=== PATIENT | female | born 1995 | race Caucasian/White ===

== ENCOUNTER 2018-05-04 11:20 | Outpatient (CLI) | payer OTHER, SELFPAY ==
[2018-05-04 11:55] VITALS: BMI 27.2
--- NOTE | 2018-05-05 11:07 | OB.TRI.NOTE ---
History of Present Illness Date of Service: 05/04/18 Was patient seen by the physician?: No Reason For Visit: DECREASED MOVEMENT Date of Service: 05/04/18 Final MERE: 09/11/18 Gestational age: 21 Weeks and 4 Days Allergies No Known Allergies Allergy (Verified 05/04/18 11:57) Impression/Plan + FHTS by doppler a/p 22 YOF high risk multigravida w/ decreased movement, h/o previous c/s reassured, + FHTS f/u in office as scheduled or as needed
== END 2018-05-04 12:30 | disposition home or self-care (01) ==
LOC: WPOUT 11:51 → WP 11:52
PROVIDERS: Visit Provider Obstetrics & Gynecology
DX: O36.8120 Decreased fetal movements, second trimester, not applicable or unspecified (principal); O09.42 Supervision of pregnancy with grand multiparity, second trimester; Z3A.21 21 weeks gestation of pregnancy
CPT/HCPCS: 59050; 99218; G0378

== ENCOUNTER 2018-09-04 14:13 | Inpatient (IN) | payer OTHER, SELFPAY ==
[2018-09-03 16:42] LABS: Absolute Lymphocyte Count 2.06 X10^3/ul (0.83-4.51); Absolute Neutrophil Count 8.9 X10^3/uL (2.0-7.7); Basophil# 0.01 X10^3/uL; Basophil% 0.1 % (0-1); Eosinophil# 0.05 X10^3/uL; Eosinophils% 0.4 % (0-5); Hematocrit 36.2 % (37-47); Hemoglobin 11.9 g/dl (12.0-15.0); Lymphocyte # 2.06 X10^3/ul (4.0); Mean Corp Hgb Conc 32.9 g/gl (32-36); Mean Corpuscular Hgb 27.9 pg (27.0-32.0); Monocyte# 0.93 X10^3/uL; Monocyte% 7.7 % (0-10); Neutrophil # 8.94 X10^3/uL (2.7-7.7); Neutrophil % 73.9 % (47-70); POSITIVE COUNT NO; POSITIVE DIFFERENTIAL NO; POSITIVE MORPHOLOGY NO; Platelet Count 190 K/mm3 (150-450); RBC Distribution Width CV 14.2 % (11.6-14.6); RBC Distribution Width SD 43.7 fl (35.1-43.9); Red Blood Count 4.26 M/mm3 (4.2-5.4); White Blood Count 12.1 K/mm3 (4.4-11.0)
[2018-09-04] VITALS (17 sets, daily range): BP systolic 95–117; BP diastolic 50–70; PULSE 66–85; RESP 16–18; TEMP 36.2–36.6; O2SAT 96–100; BMI 28.8
[2018-09-04] MEDS: Lactated Ringers 1,000 ML 999 ML IV (10:00)
[2018-09-04] MEDS: Lactated Ringers 1,000 ML 150 ML IV (11:00)
[2018-09-04] MEDS: Sodium Citrate/Citric Acid 30 ML UDC PO (12:00)
[2018-09-04] MEDS: Cefazolin 2 GM in 0.9% Normal Saline 100 ML IV (12:17)
[2018-09-04] MEDS: Oxytocin 30 units/NS 500 ml 30 UNITS/500 ML IV.SOLN 167 UNITS IV (12:44)
[2018-09-04] MEDS: Ketorolac 30 MG/ML Syringe IV ×2 (14:27→20:26)
[2018-09-04] MEDS: Ondansetron 4 MG/2 ML Vial IV ×2 (14:27→20:25)
--- NOTE | 2018-09-04 19:31 | NURSING ---
Pt stood at side of bed, kelechi pad changed. Pt tolerated well. Back to bed after pad changed.
[2018-09-04] MEDS: 0.9% Saline Lock 10 ML Syringe IV (20:26)
[2018-09-05] VITALS (9 sets, daily range): BP systolic 96–133; BP diastolic 48–74; PULSE 78–98; RESP 14–18; TEMP 36–36.9; O2SAT 97–100
[2018-09-05 05:09] LABS: Hematocrit 29.7 % (37-47); Hemoglobin 9.7 g/dl (12.0-15.0); Mean Corp Hgb Conc 32.7 g/gl (32-36); Mean Corpuscular Hgb 27.9 pg (27.0-32.0); Mean Corpuscular Volume 85.3 fL (81-99); Mean Platelet Vol. 9.6 fl (6.2-12.0); Platelet Count 210 K/mm3 (150-450); RBC Distribution Width CV 14.2 % (11.6-14.6); RBC Distribution Width SD 42.8 fl (35.1-43.9); Red Blood Count 3.48 M/mm3 (4.2-5.4); White Blood Count 11.7 K/mm3 (4.4-11.0)
[2018-09-05 05:20] LABS: Scan Indicated on CBC? Y/N NO
[2018-09-05] MEDS: Ketorolac 30 MG/ML Syringe IV ×4 (06:15→23:36)
--- NOTE | 2018-09-05 07:23 | PCM.PN.OB ---
Subjective: Doing well this morning. Tolerating regular diet without nausea or vomiting. Has not yet ambulated. Gonzalez still in place. Denies lightheadedness, dizziness, chest pain, shortness of breath, leg pain. Pain is well controlled. She feels well and has no complaints. - Physical Exam General: Alert, Oriented x3 HEENT: Atraumatic Lungs: - - No increased resp effort Abdomen: Soft, Non Tender, - - FF@U, dressing with minimal shadowing, no surrounding errythema or swelling Extremities: No edema, No Calf Tenderness Skin: No rashes Neurological: Neuro grossly intact Psych/Mental Status: Normal Affect, Appropriate Vital Signs Temp Pulse Resp BP Pulse Ox 98.5 F 85 16 108/74 99 09/05/18 05:10 09/05/18 06:42 09/05/18 06:42 09/05/18 05:10 09/05/18 06:42 Oxygen Delivery Method Room Air Weight: 163 lb Body Mass Index (BMI) 28.8 Intake and Output for Last 24 Hours 09/03/18 09/04/18 09/05/18 23:59 23:59 23:59 Intake Total 1869 / 1869 1339 / 1339 Output Total 1150 / 1150 1175 / 1175 Balance 719 / 719 164 / 164 Laboratory Tests Past 24 Hrs 09/05/18 04:56 WBC 11.7 H RBC 3.48 L Hgb 9.7 L Hct 29.7 L MCV 85.3 MCH 27.9 MCHC 32.7 RDW 14.2 RDW Differential 42.8 Plt Count 210 MPV 9.6 Medical Necessity - Tobacco Use Smoking Status: Never smoker Assessment/Plan Patient is postoperative day 2 from a repeat low transverse section. - Doing well - Pain controlled - AF, VSS - Start iron for post-op Hgb 9 - Remove gonzalez and encouraged ambulation today - Dispo: Routine PO care
--- NOTE | 2018-09-05 07:26 | PCM.OB.CSR ---
- Problem List (1) History of delivery Status: Acute Delivery Classification: Scheduled Gestational age: 39 wks Indications: Patient is a 22-year-old 001 at 39 weeks gestation who presents for a repeat low transverse section. She is a history of 1 prior section for failure to progress in labor. Risks, benefits, and alternatives were discussed. She considered a trial of labor after section but ultimately decided to have a repeat section. Indications for : Repeat Elective Description of Procedure: Findings: Normal uterus, bilateral tubes, bilateral ovaries. Minimal scarring noted. Bladder slightly adhered to the anterior surface of the uterus. Procedure: Patient taken to operating room where spinal anesthesia was found to be adequate. She was placed in dorsal supine position with a leftward tilt. She was prepped and draped in the usual sterile fashion. Skin incision was made with a scalpel along her prior incision. Incision was carried down to the underlying layer of fascia. The fascia was extended laterally using Caldwell scissors. Gretchen clamps were placed on the superior portion of the fascia, and the underlying rectus muscles were dissected off of the fascia with sharp dissection. Gretchen clamps were then placed on the inferior portion of the fascia, and the underlying rectus muscles dissected off of the fascia using sharp dissection. The rectus muscles were in the midline. The peritoneum was entered bluntly. Minimal adhesions of the bladder were noted to the anterior surface of the uterus. A bladder flap was created. A low transverse incision was made on the uterus. The was delivered in vertex position without difficulty. Cord was clamped and cut after 60 seconds and the infant was handed off to the nursery nurse. The uterus was exteriorized and normal bilateral fallopian tubes and ovaries were noted. The uterus was cleared of all clot and debris. The uterus was closed with Vicryl in a running locked fashion. Several additional [id number] sutures were placed on the uterine incision for hemostasis. Uterus was placed back into the abdomen. Hemostasis was again noted. Luis was placed over the uterine incision. The peritoneum was then closed in a running fashion with Vicryl. The fascia was then closed in a running fashion with Vicryl. The subcutaneous space was irrigated and any bleeding was cauterized with the Bovie. The subcutaneous space was closed with Vicryl. The skin was closed in a subcuticular fashion using Monocryl. Sponge, lap, instrument counts were correct x2. Patient was taken to the recovery room in stable condition. Amniotic Fluid Description: Clear Specimen(s) sent to pathology: None Drain: Worthy to straight drain Cord Vessel Description: 3 Vessels Esitmated Blood Loss (ml): 500 Infant Gender: Female Delayed cord clamping: Yes Pre-op Antibiotic Given: Ancef 2 grams IV x1 Complications: None - Admit VTE Documentation VTE Mechan Device Prophylaxis: SCD's
[2018-09-05] MEDS: Ferrous Sulfate 325 MG Tablet PO (12:23)
[2018-09-05] MEDS: 0.9% Saline Lock 10 ML Syringe IV ×3 (12:24→23:36)
--- NOTE | 2018-09-05 12:50 | PCM.PN.OB ---
Patient Problems: Active and Suspected Problems History of delivery (Acute) Subjective: Doing well per patient and nursing staff. Ambulating without difficulty. Worthy out and voiding. Passing flatus, no BM. Denies any headache, visual changes, chest pain, SOB, or increased pain. . Planning D/C home tomorrow. - Physical Exam General: Alert, No apparent distress HEENT: Atraumatic, Normocephalic Neck: Supple, Trachea Midline Lungs: Clear to auscultation, No rhonchi, No wheeze Cardiovascular: Regular rate, Regular Rhythm, No murmurs Abdomen: Tender - Dressing dry and intact, old blood. Extremities: No edema Psych/Mental Status: Normal Affect, Appropriate Vital Signs Temp Pulse Resp BP Pulse Ox 97.2 F L 90 16 96/54 L 100 09/05/18 12:15 09/05/18 12:15 09/05/18 12:15 09/05/18 12:15 09/05/18 12:15 Oxygen Delivery Method Room Air Weight: 163 lb Body Mass Index (BMI) 28.8 Intake and Output for Last 24 Hours 09/03/18 09/04/18 09/05/18 23:59 23:59 23:59 Intake Total 1869 / 1869 1472 / 1472 Output Total 1150 / 1150 1725 / 1725 Balance 719 / 719 -253 / -253 Laboratory Tests Past 24 Hrs 09/05/18 04:56 WBC 11.7 H RBC 3.48 L Hgb 9.7 L Hct 29.7 L MCV 85.3 MCH 27.9 MCHC 32.7 RDW 14.2 RDW Differential 42.8 Plt Count 210 MPV 9.6 Medical Necessity - Tobacco Use Smoking Status: Never smoker Assessment/Plan All Active Problems History of delivery (Acute) A:POD #1 Repeat Section P: 1) Routine orders 2) Planning D/C home tomorrow 3) Pain management.
[2018-09-06 01:30] VITALS: BP 112/53; PULSE 82; RESP 17; TEMP 36
[2018-09-06] MEDS: Ketorolac 30 MG/ML Syringe IV (05:38)
[2018-09-06] MEDS: 0.9% Saline Lock 10 ML Syringe IV (05:38)
--- NOTE | 2018-09-06 07:20 | PCM.PN.OB ---
Patient Problems: Active and Suspected Problems History of delivery (Acute) Subjective: Patient doing well. She has no complaints. Tolerating regular diet without nausea or vomiting. Ambulating and spontaneously voiding without difficulty. Breast-feeding. Baby doing well. She denies lightheadedness, dizziness, chest pain, shortness of breath, leg pain. She feels ready to go home. - Physical Exam General: Alert, Oriented x3 HEENT: Atraumatic Lungs: - - No increased resp effort Abdomen: Soft, Non Tender, - - FF@U-1, dressing in place, clean and no errythema Extremities: No edema, No Calf Tenderness Skin: No rashes Neurological: Neuro grossly intact Psych/Mental Status: Normal Affect, Appropriate Vital Signs Temp Pulse Resp BP Pulse Ox 96.8 F L 82 17 112/53 L 100 09/06/18 01:30 09/06/18 01:30 09/06/18 01:30 09/06/18 01:30 09/05/18 12:15 Oxygen Delivery Method Room Air Weight: 163 lb Body Mass Index (BMI) 28.8 Intake and Output for Last 24 Hours 09/04/18 09/05/18 09/06/18 23:59 23:59 23:59 Intake Total 1869 / 1869 1472 / 1472 Output Total 1150 / 1150 2125 / 2125 Balance 719 / 719 -653 / -653 Medical Necessity - Tobacco Use Smoking Status: Never smoker Assessment/Plan All Active Problems History of delivery (Acute) POD#2 s/p RLTCS - Doing well - D/c home today - Discharge instructions reviewed
--- NOTE | 2018-09-06 07:22 | DCINST_ITS ---
Discharge Diet: No Restrictions Discharge Activity: May not drive while taking narcotic pain medications., May Shower May shower in (days): 0 May resume sexual activity in: 4-6 weeks Weight Bearing Status: Weight bearing as tolerated Lifting Restrictions: No heavy lefint > 25 lbs Call your doctor if you observe: Fever of 101 or Higher, Inability to urinate, Inability to have a bowel movement, Using more than one pad per hour, Shortness of breath, Dizziness, Chest pain, Increased palpitations (irregular heartbeat), Calf discomfort, Uncontrolled pain Additional Instructions: If you experience any of the following, contact your healthcare provider. * Bleeding that soaks a pad every hour for 2 hours * Fever 100.4 or higher * Unrelieved incision or abdominal pain * Swelling, redness, discharge or bleeding from your incision or episiotomy site * Your incision begins to separate * Problems urinating (including inability to urinate or burning while urinating). * Visual changes * Severe headache * Flu-like symptoms * Pain or redness in one of both of your breasts * Pain, warmth, tenderness or swelling in your legs, especially the calf area * Frequent nausea and vomiting * Symptoms of depression or anxiety If you experience any of the following, call 911 or go to the nearest Emergency Room. * Chest pain * Problems breathing * Seizure activity * Partial or complete paralysis of a body part, slurred speech, weakness or drooping of the face, or a sudden inability to walk or hold your balance Allergies/Adverse Reactions: Allergies No Known Allergies Allergy (Verified 09/04/18 14:11) Medications to take at Discharge Vits [Prenatabs FA ] 1 tab PO DAILY 05/04/18 Follow-Up: Call to make an appointment with your doctor for an incision check in 1-2 weeks. You will also need a 6 week post- follow up appointment. Test results from this visit will be discussed in further detail at your follow- up appointment, if applicable. Please Follow Up With: 1 week and 4-6 weeks Primary Care Physician: Duke Londono [Primary Care Provider] -
[2018-09-06 08:00] VITALS: BP 107/48; PULSE 87; RESP 16; TEMP 36.6; O2SAT 99
== END 2018-09-06 08:55 | disposition home or self-care (01) | DRG 787 ==
PROVIDERS: Admitting Provider Obstetrics & Gynecology; Family Provider Family Medicine; PCP Family Medicine; Referring Provider Obstetrics & Gynecology; Visit Provider Obstetrics & Gynecology
PROC: (CPT 59514; principal; 2018-09-04 11:45)
DX: O34.211 Maternal care for low transverse scar from previous cesarean delivery (principal); D62 Acute posthemorrhagic anemia; O99.62 Diseases of the digestive system complicating childbirth; K21.9 Gastro-esophageal reflux disease without esophagitis; O90.81 Anemia of the puerperium; Z3A.39 39 weeks gestation of pregnancy; Z37.0 Single live birth
CPT/HCPCS: 85025; 85027; 86850; 86900; 99218; J7120; A4216; G0378; J2405

== ENCOUNTER 2019-12-29 12:35 | Outpatient (CLI) | payer OTHER, SELFPAY ==
[2018-09-04 14:31] VITALS: BMI 28.8
[2019-12-29 12:50] VITALS: BMI 28.7
[2019-12-29] MEDS: Ondansetron ODT 4 MG Tablet PO (13:09)
--- NOTE | 2020-01-01 09:58 | OB.TRI.HP_ITS ---
- Problem List (1) 27 weeks gestation of Status: Acute (2) Multiparous Status: Acute (3) Nausea & vomiting Status: Acute History of Present Illness Date of Service: 12/29/19 Was patient seen by the physician?: No Reason For Visit: NST Final MERE: 03/28/20 Gestational age: 27 Weeks and 4 Days History of Present Illness: Presented for routine office visit and had nausea and vomiting after her Glucola. A deceleration was heard on Doppler in the office. On NST in the of fice she had 2 additional decelerations therefore she was sent over to labor and delivery for extended monitoring. Allergies No Known Allergies Allergy (Verified 12/29/19 12:55) NST - FHR Rate Baby A Baseline: 145 Variability:: Moderate Accelerations:: 15 x 15 Decelerations:: None NST Reactive:: Yes FHR Category:: Category I Uterine Activity:: Quiet Impression/Plan NST reactive Patient feeling better after Zofran Discharged home with follow-up in the office
== END 2019-12-29 14:05 | disposition home or self-care (01) ==
LOC: WPOUT 12:43 → OBT 12:43
PROVIDERS: PCP Family Medicine; Referring Provider Obstetrics & Gynecology; Visit Provider Obstetrics & Gynecology
DX: O36.8320 Maternal care for abnormalities of the fetal heart rate or rhythm, second trimester, not applicable or unspecified (principal); Z3A.27 27 weeks gestation of pregnancy; R11.2 Nausea with vomiting, unspecified
CPT/HCPCS: 59025; 59050; 99218; G0378

== ENCOUNTER 2020-03-16 09:30 | Inpatient (IN) | payer OTHER, SELFPAY ==
--- NOTE | 2020-03-15 10:24 | PCM.HP.OB ---
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 She has a history of 2 prior sections. 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 Maternal- medicine recommended delivery at 38 to 39 weeks. The last ultrasound showed an LGA fetus at the 95th percentile due to the increased abdominal circumference measurement, which is due to the markedly enlarged right kidney. Her amniotic fluid was mildly increased at 22 cm. Allergies No Known Allergies Allergy (Verified 12/29/19 12:55) Home Medications: Home Medications Calcium Carbonate [Tums] 200 mg PO PRN PRN 12/29/19 Smoking Status: Never smoker Number of Fetus(es): 1 History Past Pregnancies: Past Pregnancies Delivery Date Name GA/ Weeks Outcome Route Wt Infant Sex Labor Length Anesthesia Delivery Location Provider FOB Labs: GBS neg Hgb a1c 4.3, pt did not tolerate glucola Hgb 11.3 Plt 225 TSH, free T4 WNL Sequential screen neg B positive Ab screen neg Syphilis NR RIHep B neg HIV NR GC/CT neg UDS neg See [facility] records Expected Infant Delivery Method: Repeat Section Review of Systems Constitutional: Denies: Chills, Fever HEENT: Denies: Head Aches Cardiovascular: Denies: Chest Pain Respiratory: Denies: Cough, Shortness of Breath Gastrointestinal: Denies: Abdominal Pain Genitourinary: Denies: Dysuria Neurological: Denies: Blurred vision, Double vision Psychiatric: Reports: Anxiety Physical Exam General: Alert, No apparent distress HEENT: Atraumatic Cardiovascular: Regular rate Lungs: Clear to auscultation Abdomen: Soft, Non Tender Extremities:: No edema Neurological: Neuro grossly intact Estimated gestational size: Appropriate for gestational size Presentation: Cephalic Assessment/Plan All Active Problems History of delivery (Acute) 27 weeks gestation of (Acute) Multiparous (Acute) Nausea & vomiting (Acute) 38 weeks gestation of (Acute) PVC's (premature ventricular contractions) (Acute) 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 Maternal- medicine recommended delivery at 38 to 39 weeks. Patient desires to proceed with delivery at 38 weeks. Reviewed risks, benefits, alternatives to repeat section. Also discussed risks, benefits, alternatives to a tubal ligation. Reviewed risk of regret. Discussed all other forms of control including long-acting reversible contraception. Patient understands that the tubal ligation is permanent and irreversible. She is 100% certain that she does not desire additional children in the future. She wishes to proceed with a tubal ligation. Patient desires to proceed with surgery and consent was signed. Routine preop care.
[2020-03-16] VITALS (22 sets, daily range): BP systolic 90–116; BP diastolic 33–68; PULSE 61–90; RESP 14–18; TEMP 36.6–38.6; O2SAT 9–100; BMI 30.9
--- NOTE | 2020-03-16 | FALS_PTH ---
PATIENT: AQUILINO ORDAZ LOC: [facility] U#:[id number] AGE/SX: ROOM: WP007 RE03/16/[address]: Dr. Berta Nayak DO : 1995 BED: 1 DIS: 03/19/2020 SPEC #: [id number] RECD: 03/16/20 13:50 STATUS: DESEAN KOURTNEY #: [id number] BOZENA: 03/16/20 00:[address]: Berta Nayak DEPT: SURGICAL PATHOLOGY RECD BY: oNam Oro ENTERED: 03/17/20 12:03 SP TYPE: FALL TUBES OTHR DR: Dr. Duke Londono MD Tissues: Fallopian tube Procedures: Surgery Specimen Level II HEADER OPERATION: Tubal ligation PRE-OP DIAGNOSIS: Sterilization TISSUE SUBMITTED: Fallopian tubes, suture in right tube MICROSCOPIC DIAGNOSIS Bilateral fallopian tubes, tubal ligation: Completely transected segments of bilateral fallopian tubes, no pathologic diagnosis. SJ:shannon 03/18/20 MICROSCOPIC DESCRIPTION Slides are reviewed. GROSS DESCRIPTION Received in fixative is one container labeled with the patient's name and designated bilateral fallopian tubes, right side suture. The specimen consists of two tubular pieces of kenney soft tissue with the right identified with a suture. The segment of right fallopian tube measures 1.3 cm in length and 0.4 cm in diameter. The segment of left fallopian tube measures 1.2 cm in length and 0.4 cm in diameter. The entire specimen is submitted in two cassettes as follows: 1 - right fallopian tube, 2 - left fallopian tube. Both pieces will be sectioned at the time of embedding. / ARPAN:shannon 03/17/20 TC:4 CPT: 81236 x2
[2020-03-16] MEDS: Lactated Ringers 1,000 ML 999 ML IV (10:10)
[2020-03-16 10:29] LABS: Absolute Lymphocyte Count 2.07 X10^3/uL (0.83-4.51); Absolute Neutrophil Count 4.9 X10^3/uL (2.0-7.7); Basophil# 0.03 X10^3/uL; Basophil% 0.4 % (0-1); Eosinophil# 0.04 X10^3/uL; Eosinophils% 0.5 % (0-5); Hematocrit 34.3 % (37-47); Hemoglobin 10.7 g/dL (12.0-15.0); Lymphocyte # 2.07 X10^3/ul (4.0); Lymphocyte % 26.6 % (19-41); Mean Corp Hgb Conc 31.2 g/dL (32-36); Mean Corpuscular Hgb 25.1 pg (27.0-32.0); Mean Corpuscular Volume 80.5 fL (81-99); Mean Platelet Vol. 9.8 fl (6.2-12.0); Monocyte# 0.58 X10^3/uL; Monocyte% 7.5 % (0-10); NRBC Flagged by Analyzer 0 % (0-5); Neutrophil # 4.92 X10^3/uL (2.7-7.7); Neutrophil % 63.2 % (47-70); Platelet Count 223 K/mm3 (150-450); RBC Distribution Width CV 14.4 % (11.6-14.6); RBC Distribution Width SD 41.8 fl (35.1-43.9); Red Blood Count 4.26 M/mm3 (4.2-5.4); White Blood Count 7.8 K/mm3 (4.4-11.0)
[2020-03-16] MEDS: Lactated Ringers 1,000 ML 150 ML IV (11:24)
[2020-03-16] MEDS: Sodium Citrate/Citric Acid 30 ML UDC PO (11:51)
[2020-03-16] MEDS: Cefazolin 2 GM in 0.9% Normal Saline 100 ML IV (11:57)
--- NOTE | 2020-03-16 13:12 | OP.PCM_ITS ---
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 Normal-appearing uterus, bilateral tubes, bilateral ovaries. Clear fluid. Intact and normal-appearing placenta with three-vessel cord. Viable male infant in cephalic presentation. Type of Anesthesia:: Spinal Special Medications: None Specimen's removed: Placenta, bilateral fallopian tube segments Drains: Worthy Estimated Blood Loss (mL): 900 Fluids Replaced: 1400 Description of Procedure: Patient was taken to the operating room where spinal anesthesia was found to be adequate. She was prepped and draped in the dorsal position with a leftward tilt. A Pfannenstiel skin incision was made with a scalpel and carried down to the underlying layer of fascia. The fascia was incised in the midline. The fascia was extended laterally using Caldwell scissors. The fascia was dissected off the rectus muscles using a combination of sharp and blunt dissection. The fascia was minimally adhered to the rectus muscles. The rectus muscles were minimal adhered in the midline. The rectus muscles were in the midline. The peritoneum was entered with good visualization of the bladder. The peritoneum was extended bluntly. A bladder flap was then created. A low transverse incision was made on the uterus with a scalpel. Membranes were ruptured for clear fluid. Viable male was delivered in cephalic presentation without any force or delay. The cord was clamped and cut after a 60 sec delay. The was handed off to the nursery staff. The placenta was removed with manual extraction and noted be normal-appearing with a three-vessel cord. The uterus was exteriorized. The uterus was cleared of all clot and debris. The hysterotomy was closed in a running locked fashion with Vicryl. The incision was noted to be hemostatic. The patient then again confirmed that she desired a tubal ligation. The left fallopian tube was followed out to the fimbriated end and a 2 cm segment was removed after after suture ligation and transection. The right fallopian tube was followed out to the fimbriated end and a 2 cm segment was removed after suture ligation and transection. The fallopian tube segments were sent to pathology for review. The fallopian tubes were hemostatic. The hysterotomy was still hemostatic. The uterus was placed back in the abdomen. The rectus muscles were examined and noted to be hemostatic. The fascia was closed in a running fashion. The subcutaneous space was irrigated and made hemostatic with Bovie cautery. The subcutaneous space was reapproximated with Vicryl. The skin was closed in subcuticular fashion with Monocryl. Steri-Strips and dressing were placed. Instrument and sponge count were correct. The patient was taken to recovery room in stable condition. Grafts/Implants Used: None - Complications None - Admit VTE Documentation VTE Present on Admission: No VTE Mechan Device Prophylaxis: SCD's Delivery Classification: Scheduled Final MERE: 03/28/20 Gestational age: 38 Weeks and 2 Days Indications for : Repeat Elective , Desires elective sterilization Amniotic Membrane Rupture Type: Artificial Amniotic Fluid Description: Clear Drain: Worthy to straight drain Cord Entanglement: Around neck x 1, loose Nuchal Cord Compression: Without compression Cord Vessel Description: 3 Vessels Gender: Male (1 minute): 8 (5 minute): 9 Delayed cord clamping: Yes Antibiotic Given: Ancef 2 grams IV x1 Pt instructed on risks of surgery: Bleeding, Infection, Need for Future C- Sections, Permanency, Injury to surrounding structure(s) including bowel and bladder, Availability of other non-permanent control options Complications: None - Admit VTE Documentation VTE Present on Admission: No VTE Mechan Device Prophylaxis: SCD's VTE Pharm Prophylaxis ordered?: Yes
[2020-03-16] MEDS: Oxytocin 30 units/NS 500 ml 30 UNITS/500 ML IV.SOLN 167 UNITS IV (13:20)
[2020-03-16 13:52] LABS: Pathology Specimen OB SEE PATHOLOGY REPORT
[2020-03-16] MEDS: Lactated Ringers 1,000 ML 100 ML IV (16:35)
--- NOTE | 2020-03-16 18:59 | PCM.PN.BLA ---
Progress Note Called for elevated temporal temperature x2. At bedside to evaluate patient. Patient feels well. She denies any complaints. She denies any cold-like symptoms, sinus congestion, cough, shortness of breath, chest pain, uncontrolled abdominal pain, leg pain. Her pain is well controlled. PE: Gen- NAD, well appearing Chest- No increased resp effort Abd- Soft, FF@U and no fundal tenderness noted, minimal abd distension, no rebounding, no gaurding, no rigidity LE- No erythema, swelling, tenderness A/P - Oral temperature checked and WNL - Will get UA and urine cx - Otherwise continue to monitor given she has no symptoms currently, and no signs of infection or DVT on exam. If she has another fever will treat as presumed endometritis and start IV antibiotics if she has no other new symptoms or signs of infection - CBC in AM - Pt agreeable to this plan - DVT proph: Lovenox and SCD's STROKE Vital Signs/Narrative: Vital Signs Temp Pulse Resp BP Pulse Ox 03/16/20 18:52 101.4 F H 03/16/20 18:51 99.1 F 03/16/20 18:20 101.1 F H 14 100 03/16/20 17:43 100.9 F H 90 16 104/60 99 03/16/20 16:38 99.9 F H 78 18 90/51 L 9 03/16/20 15:28 100.2 F H 77 18 100/52 L 99 03/16/20 15:21 77 18 102/61 99 03/16/20 15:00 67 16 93/41 L 99
[2020-03-16] MEDS: Ketorolac 30 MG/ML Syringe IV (19:09)
[2020-03-16 19:20] LABS: Mucous, Urine 0 SEEN /hpf (<or=2+); Squamous Epithelial Cells - UA 0 SEEN /hpf (5-10)
[2020-03-16 19:24] LABS: Color, Urine Yellow (Yellow); Glucose, Dipstick Normal (Normal); Ketone-Dipstick Negative (Negative); Leukocyte Esterase-Dipstick 500 /ul (Negative); Nitrite-Dipstick Negative (Negative); Occult Blood-Urine 10 /ul (Negative); Protein-Dipstick Negative (Negative); Urine Bilirubin Dipstick Negative (Negative); Urine Clarity Sl. Cloudy (Clear); Urine Urobilinogen 1 mg/dl (Normal)
[2020-03-16] MEDS: Senna/Docusate Sodium 1 Tablet PO (20:00)
[2020-03-16 20:07] LABS: Bacteria 1+ /hpf (None Seen); Red Blood Cells-Urine 0-5 SEEN /hpf (0-5); White Blood Cells 5-10 SEEN /hpf (0-5)
[2020-03-16] MEDS: 0.9% Saline Lock 10 ML Syringe IV (22:42)
[2020-03-17] VITALS (11 sets, daily range): BP systolic 92–116; BP diastolic 54–80; PULSE 70–96; RESP 14–18; TEMP 36.6–38.1; O2SAT 98–100
[2020-03-17] MEDS: Ketorolac 30 MG/ML Syringe IV ×4 (00:46→18:38)
[2020-03-17] MEDS: 0.9% Saline Lock 10 ML Syringe IV ×5 (00:46→18:39)
[2020-03-17] MEDS: Enoxaparin 40 MG/0.4 ML Syringe SC (00:47)
[2020-03-17 05:44] LABS: Hematocrit 29.2 % (37-47); Hemoglobin 9.1 g/dL (12.0-15.0); Mean Corp Hgb Conc 31.2 g/dL (32-36); Mean Corpuscular Hgb 25.3 pg (27.0-32.0); Mean Corpuscular Volume 81.3 fL (81-99); Mean Platelet Vol. 9.7 fl (6.2-12.0); Platelet Count 210 K/mm3 (150-450); RBC Distribution Width CV 14.2 % (11.6-14.6); Red Blood Count 3.59 M/mm3 (4.2-5.4); White Blood Count 11.2 K/mm3 (4.4-11.0)
--- NOTE | 2020-03-17 09:02 | PCM.PN.OB ---
Subjective: Doing well per patient and nursing staff. Ambulating and taking PO without difficulty. Afebrile this am. Denies an dizziness, shortness of breath, chest pain, leg pain, headache, visual changes, or chills. Voiding and passing flatus. without concerns. - Physical Exam Vitals/I&O's: Vital Signs Temp Pulse Resp BP Pulse Ox 98.4 F 72 16 105/54 L 100 03/17/20 08:00 03/17/20 08:00 03/17/20 08:00 03/17/20 08:00 03/17/20 06:00 Oxygen Delivery Method Room Air Weight: 175 lb Body Mass Index (BMI) 30.9 Intake and Output for Last 24 Hours 03/15/20 03/16/20 03/17/20 23:59 23:59 23:59 Intake Total 3872.5 / 3872.5 Output Total 1475 / 1475 300 / 300 Balance 2397.5 / 2397.5 -300 / -300 General: Alert, Oriented x3, Cooperative HEENT: Atraumatic Neck: Trachea Midline Lungs: Clear to auscultation, Normal air movement, No rhonchi, No wheeze Cardiovascular: Regular rate, Regular Rhythm, No murmurs Abdomen: Bowel Sounds Present, Soft - fundus firm 3 below U. Dressing dry and intact, wearing abdominal binder Extremities: No edema Psych/Mental Status: Normal Affect, Appropriate Microbiology Past 72 Hours 03/14/20 09:30 Mucosa - Nasopharyngeal Coronavirus COVID-19 PCR - Final Laboratory Results 03/16/20 10:10: WBC 7.8, RBC 4.26, Hgb 10.7 L, Hct 34.3 L, MCV 80.5 L, MCH 25.1 L, MCHC 31.2 L, RDW Std Deviation 41.8, RDW Coeff of Catrina 14.4, Plt Count 223, MPV 9.8, Immature Gran % (Auto) 1.800 H, Neut % (Auto) 63.2, Lymph % (Auto) 26.6, [place] % (Auto) 7.5, Eos % (Auto) 0.5, Baso % (Auto) 0.4, Absolute Neuts (auto) 4.9, Absolute Lymphs (auto) 2.07, Nucleated RBC % 0 03/16/20 10:10: Blood Type B POSITIVE, Antibody Screen NEGATIVE 03/16/20 19:05: Urine Color Yellow, Urine Clarity Sl. Cloudy, Urine pH 7.0, Ur Specific [place] 1.010, Urine Protein Negative, Urine Glucose (UA) Normal, Urine Ketones Negative, Urine Occult Blood 10 H, Urine Nitrite Negative, Urine Bilirubin Negative, Urine Urobilinogen 1 H, Ur Leukocyte Esterase 500 H, Urine RBC 0-5 SEEN, Urine WBC 5-10 SEEN, Ur Squamous Epith Cells 0 SEEN, Urine Bacteria 1+, Urine Mucus 0 SEEN 03/17/20 05:35: WBC 11.2 H, RBC 3.59 L, Hgb 9.1 L, Hct 29.2 L, MCV 81.3, MCH 25.3 L, MCHC 31.2 L, RDW Std Deviation 42.0, RDW Coeff of Catrina 14.2, Plt Count 210, MPV 9.7 Current Medications Acetaminophen (Tylenol) 1,000 mg PO Q8H PRN PRN Reason: Pain Score 1-3/10 Bisacodyl (Dulcolax) 10 mg RECTAL UD PRN PRN Reason: If no BM Calcium Carbonate (Tums) 500 mg PO TID PRN PRN PRN Reason: INDIGESTION Diphenhydramine HCl (Benadryl) 25 mg PO Q6H PRN PRN PRN Reason: ITCHING Stop: 03/17/20 15:01 Enoxaparin Sodium (Lovenox) 40 mg SC DAILY [facility] Last Admin: 03/17/20 00:47 Dose: 40 mg Documented by: Hydrocortisone (Hytone) 1 applic TOPICAL TID PRN PRN; Protocol PRN Reason: Discomfort Naloxone HCl 4 mg/ Dextrose 504 mls @ 0 mls/hr IV .Q0M PRN; Protocol PRN Reason: Respiratory depression Ibuprofen (Motrin) 600 mg PO Q6H PRN PRN PRN Reason: Pain Score 1-3/10 Ketorolac Tromethamine (Toradol (Bkc)) 30 mg IV Q6H [facility] Stop: 03/18/20 13:01 Last Admin: 03/17/20 00:46 Dose: 30 mg Documented by: Methylergonovine Maleate (Methergine) 0.2 mg IM X1 PRN PRN Reason: Uterine Atony Nalbuphine HCl (Nubain) 5 mg IV Q3H PRN PRN PRN Reason: ITCHING Stop: 03/17/20 15:01 Naloxone HCl (Narcan) 0.02 mg IV Q1M PRN PRN Reason: RR <10 and pt unresponsive Ondansetron HCl (Zofran) 4 mg IV Q4H PRN PRN PRN Reason: Nausea Oxycodone HCl (Oxyir) 5 - 10 mg PO Q4H PRN PRN PRN Reason: Pain Score 4-10/10 Pantoprazole Sodium (Protonix) 20 mg PO DAILY [facility] Prochlorperazine Edisylate (Compazine Iv) 10 mg IV Q6H PRN PRN PRN Reason: NAUSEA Senna/Docusate Sodium (Senokot-S, Ariane-Colace) 0 tablet PO DAILY PRN PRN Reason: Constipation Last Admin: 03/16/20 20:00 Dose: 1 tablet Documented by: Simethicone (Mylicon) 80 mg PO PCHS PRN PRN Reason: Indigestion/stomach pain Sodium Chloride () 5 - 15 ml IV PRN PRN PRN Reason: SALINE FLUSH Last Admin: 03/17/20 00:46 Dose: 10 ml Documented by: Sodium Chloride () 5 - 15 ml IV UD PRN PRN Reason: SALINE FLUSH Medical Necessity - Tobacco Use Smoking Status: Never smoker Assessment/Plan All Active Problems History of delivery (Acute) 27 weeks gestation of (Acute) Multiparous (Acute) Nausea & vomiting (Acute) 38 weeks gestation of (Acute) PVC's (premature ventricular contractions) (Acute) 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 If fever returns greater than 100.4 will treat for endometritis. CBC normal 2) 3) Pain management 4) Hgb stable 5) Planning D/C home tomorrow.
[2020-03-17] MEDS: Senna/Docusate Sodium 1 Tablet PO (09:45)
[2020-03-17] MEDS: Pantoprazole Sodium 20 MG Tablet PO (09:46)
--- NOTE | 2020-03-17 16:11 | CASEMGMT ---
Social Work Labor and Delivery Social work consulted noted and received for maternal history of anxiety. Chart reviewed. Plan to see patient/mother of baby (MOB) 03.18.2020, in the morning hours as time allows. -DA Marrero, AGILE TEST LEAD
[2020-03-17] MEDS: Acetaminophen 500 MG Tablet 1000 MG PO (17:14)
[2020-03-17] MEDS: Ondansetron 4 MG/2 ML Vial IV (17:51)
[2020-03-17] MEDS: oxyCODONE 5 MG Tablet PO (18:38)
[2020-03-18] MEDS: Ondansetron 4 MG/2 ML Vial IV ×2 (00:11→20:36)
[2020-03-18] MEDS: 0.9% Saline Lock 10 ML Syringe IV ×8 (00:11→20:37)
[2020-03-18] MEDS: Ketorolac 30 MG/ML Syringe IV ×3 (00:15→12:41)
[2020-03-18 00:27] VITALS: TEMP 36.9
[2020-03-18 01:51] VITALS: BP 105/60; PULSE 84; RESP 18; TEMP 36.8; O2SAT 99
[2020-03-18] MEDS: oxyCODONE 5 MG Tablet PO ×4 (05:54→23:38)
[2020-03-18 06:23] LABS: Absolute Lymphocyte Count 1.31 X10^3/uL (0.83-4.51); Basophil# 0.04 X10^3/uL; Basophil% 0.4 % (0-1); Eosinophil# 0.13 X10^3/uL; Eosinophils% 1.4 % (0-5); Hematocrit 30.5 % (37-47); Hemoglobin 9.6 g/dL (12.0-15.0); Lymphocyte # 1.31 X10^3/ul (4.0); Lymphocyte % 14.1 % (19-41); Mean Corp Hgb Conc 31.5 g/dL (32-36); Mean Corpuscular Hgb 25.6 pg (27.0-32.0); Mean Corpuscular Volume 81.3 fL (81-99); Mean Platelet Vol. 9.9 fl (6.2-12.0); Monocyte% 7.5 % (0-10); NRBC Flagged by Analyzer 0 % (0-5); Neutrophil # 7.04 X10^3/uL (2.7-7.7); Neutrophil % 75.7 % (47-70); Platelet Count 218 K/mm3 (150-450); RBC Distribution Width CV 14.5 % (11.6-14.6); RBC Distribution Width SD 42.1 fl (35.1-43.9); Red Blood Count 3.75 M/mm3 (4.2-5.4); White Blood Count 9.3 K/mm3 (4.4-11.0)
[2020-03-18 07:49] VITALS: BP 115/67; PULSE 81; RESP 16; TEMP 36.4; O2SAT 100
[2020-03-18] MEDS: Pantoprazole Sodium 20 MG Tablet PO (08:03)
--- NOTE | 2020-03-18 08:39 | PCM.PN.OB ---
Subjective: Patient is doing well. Denies fevers, chills, cold symptoms, chest pain, shortness of breath, cough, uncontrolled pain, leg pain, leg swelling. Lochia normal. She is ambulating and voiding without difficulty. Tolerating a diet without nausea or vomiting. Pain is well controlled. - Physical Exam Vitals/I&O's: Vital Signs Temp Pulse Resp BP Pulse Ox 97.5 F L 81 16 115/67 100 03/18/20 07:49 03/18/20 07:49 03/18/20 07:49 03/18/20 07:49 03/18/20 07:49 Oxygen Delivery Method Room Air Weight: 175 lb Body Mass Index (BMI) 30.9 Intake and Output for Last 24 Hours 03/16/20 03/17/20 03/18/20 23:59 23:59 23:59 Intake Total 3872.5 / 3872.5 262.5 / 262.5 206 / Output Total 1475 / 1475 800 / 800 Balance 2397.5 / 2397.5 -537.5 / -537.5 / General: Alert, No apparent distress HEENT: Atraumatic Lungs: - - No increased resp effort Abdomen: Soft, Non Tender, - - FF@U, dressinf c/d/i, no surrounding erythema or swelling, no drainage Extremities: No Calf Tenderness Skin: No rashes Neurological: Neuro grossly intact Psych/Mental Status: Normal Affect, Appropriate Microbiology Past 72 Hours 03/16/20 19:05 Urine, Catheterized Urine Culture - Final Culture exhibits no growth. Laboratory Results 03/18/20 06:05: WBC 9.3, RBC 3.75 L, Hgb 9.6 L, Hct 30.5 L, MCV 81.3, MCH 25.6 L, MCHC 31.5 L, RDW Std Deviation 42.1, RDW Coeff of Catrina 14.5, Plt Count 218, MPV 9.9, Immature Gran % (Auto) 0.900, Neut % (Auto) 75.7 H, Lymph % (Auto) 14.1 L, [place] % (Auto) 7.5, Eos % (Auto) 1.4, Baso % (Auto) 0.4, Absolute Neuts (auto) 7.0, Absolute Lymphs (auto) 1.31, Nucleated RBC % 0 Current Medications Acetaminophen (Tylenol) 1,000 mg PO Q8H PRN PRN Reason: Pain Score 1-3/10 Last Admin: 03/17/20 17:14 Dose: 1,000 mg Documented by: Bisacodyl (Dulcolax) 10 mg RECTAL UD PRN PRN Reason: If no BM Calcium Carbonate (Tums) 500 mg PO TID PRN PRN PRN Reason: INDIGESTION Enoxaparin Sodium (Lovenox) 40 mg SC DAILY [facility] Last Admin: 03/17/20 00:47 Dose: 40 mg Documented by: Hydrocortisone (Hytone) 1 applic TOPICAL TID PRN PRN; Protocol PRN Reason: Discomfort Naloxone HCl 4 mg/ Dextrose 504 mls @ 0 mls/hr IV .Q0M PRN; Protocol PRN Reason: Respiratory depression Ampicillin Sodium 2 gm/ Sodium (Chloride) 100 mls @ 200 mls/hr IV Q8 [facility] Stop: 03/18/20 15:01 Last Infusion: 03/18/20 01:39 Dose: Infused Documented by: Clindamycin Phosphate 900 mg/ (Dextrose) 106 mls @ 150 mls/hr IV Q8 [facility] Stop: 03/18/20 15:01 Last Admin: 03/18/20 08:01 Dose: 150 mls/hr Documented by: Ibuprofen (Motrin) 600 mg PO Q6H PRN PRN PRN Reason: Pain Score 1-3/10 Ketorolac Tromethamine (Toradol (Bkc)) 30 mg IV Q6H [facility] Stop: 03/18/20 13:01 Last Admin: 03/18/20 07:51 Dose: 30 mg Documented by: Methylergonovine Maleate (Methergine) 0.2 mg IM X1 PRN PRN Reason: Uterine Atony Naloxone HCl (Narcan) 0.02 mg IV Q1M PRN PRN Reason: RR <10 and pt unresponsive Ondansetron HCl (Zofran) 4 mg IV Q4H PRN PRN PRN Reason: Nausea Last Admin: 03/18/20 00:11 Dose: 4 mg Documented by: Oxycodone HCl (Oxyir) 5 - 10 mg PO Q4H PRN PRN PRN Reason: Pain Score 4-10/10 Last Admin: 03/18/20 05:54 Dose: 5 mg Documented by: Pantoprazole Sodium (Protonix) 20 mg PO DAILY [facility] Last Admin: 03/18/20 08:03 Dose: 20 mg Documented by: Prochlorperazine Edisylate (Compazine Iv) 10 mg IV Q6H PRN PRN PRN Reason: NAUSEA Senna/Docusate Sodium (Senokot-S, Ariane-Colace) 0 tablet PO DAILY PRN PRN Reason: Constipation Last Admin: 03/17/20 09:45 Dose: 2 tablet Documented by: Simethicone (Mylicon) 80 mg PO PCHS PRN PRN Reason: Indigestion/stomach pain Sodium Chloride () 5 - 15 ml IV PRN PRN PRN Reason: SALINE FLUSH Last Admin: 03/18/20 07:52 Dose: 10 ml Documented by: Sodium Chloride () 5 - 15 ml IV UD PRN PRN Reason: SALINE FLUSH Medical Necessity - Tobacco Use Smoking Status: Never smoker Assessment/Plan All Active Problems History of delivery (Acute) 27 weeks gestation of (Acute) Multiparous (Acute) Nausea & vomiting (Acute) 38 weeks gestation of (Acute) PVC's (premature ventricular contractions) (Acute) 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 She had several fevers with an unknown source of infection. A UA and urine culture were sent. The urine culture is pending. Her white blood cell count was 11.2 on postoperative day 1, and is 9.3 this morning. She was started on triple antibiotics yesterday for presumed endometritis. She has been afebrile since 03/17 at 1230. She is doing well. Discussed continuing IV antibiotics until she is afebrile for 48 hours. Likely discharge home tomorrow after lunch if she remains afebrile. Discussed need for iron supplementation at home.
[2020-03-18] MEDS: Senna/Docusate Sodium 1 Tablet PO (10:10)
[2020-03-18] MEDS: Enoxaparin 40 MG/0.4 ML Syringe SC (10:11)
[2020-03-18 12:42] VITALS: BP 128/80; PULSE 87; RESP 16; TEMP 36.4; O2SAT 100
[2020-03-18] MEDS: Acetaminophen 500 MG Tablet 1000 MG PO (20:42)
[2020-03-18 20:45] VITALS: BP 118/70; PULSE 94; RESP 16; TEMP 36.4; O2SAT 100
[2020-03-19] MEDS: 0.9% Saline Lock 10 ML Syringe IV ×2 (00:23→01:17)
[2020-03-19 01:06] VITALS: BP 118/63; PULSE 86; RESP 16; TEMP 36.6; O2SAT 99
[2020-03-19] MEDS: oxyCODONE 5 MG Tablet PO (05:35)
--- NOTE | 2020-03-19 06:11 | PN.OBGYN_ITS ---
Subjective: Well. Pain well controlled. Denies fevers, chills, lightheadedness, dizziness, chest pain, shortness of breath, leg pain. Lochia normal. Ambulating voiding without difficulty. Tolerating regular diet without nausea or vomiting. She desires to go home today. - Physical Exam Vitals/I&O's: Vital Signs Temp Pulse Resp BP Pulse Ox 98 F 86 16 118/63 99 03/19/20 01:06 03/19/20 01:06 03/19/20 01:06 03/19/20 01:06 03/19/20 01:06 Oxygen Delivery Method Room Air Weight: 175 lb Body Mass Index (BMI) 30.9 Intake and Output for Last 24 Hours 03/17/20 03/18/20 03/19/20 23:59 23:59 23:59 Intake Total 262.5 / 262.5 618 / 618 206 / 206 Output Total 800 / 800 Balance -537.5 / -537.5 618 / 618 206 / 206 General: Alert, No apparent distress HEENT: Atraumatic Lungs: - - No increased resp effort Abdomen: Soft, Non Tender, Non-Distended Extremities: No edema, No Calf Tenderness Skin: No rashes Neurological: Neuro grossly intact Psych/Mental Status: Normal Affect, Appropriate Microbiology Past 72 Hours 03/16/20 19:05 Urine, Catheterized Urine Culture - Final Culture exhibits no growth. Laboratory Results 03/18/20 06:05: WBC 9.3, RBC 3.75 L, Hgb 9.6 L, Hct 30.5 L, MCV 81.3, MCH 25.6 L , MCHC 31.5 L, RDW Std Deviation 42.1, RDW Coeff of Catrina 14.5, Plt Count 218, MPV 9.9, Immature Gran % (Auto) 0.900, Neut % (Auto) 75.7 H, Lymph % (Auto) 14.1 L, [place] % (Auto) 7.5, Eos % (Auto) 1.4, Baso % (Auto) 0.4, Absolute Neuts (auto) 7. 0, Absolute Lymphs (auto) 1.31, Nucleated RBC % 0 Current Medications Acetaminophen (Tylenol) 1,000 mg PO Q8H PRN PRN Reason: Pain Score 1-3/10 Last Admin: 03/18/20 20:42 Dose: 1,000 mg Documented by: Bisacodyl (Dulcolax) 10 mg RECTAL UD PRN PRN Reason: If no BM Calcium Carbonate (Tums) 500 mg PO TID PRN PRN PRN Reason: INDIGESTION Enoxaparin Sodium (Lovenox) 40 mg SC DAILY [facility] Last Admin: 03/18/20 10:11 Dose: 40 mg Documented by: Hydrocortisone (Hytone) 1 applic TOPICAL TID PRN PRN; Protocol PRN Reason: Discomfort Naloxone HCl 4 mg/ Dextrose 504 mls @ 0 mls/hr IV .Q0M PRN; Protocol PRN Reason: Respiratory depression Ampicillin Sodium 2 gm/ Sodium (Chloride) 100 mls @ 200 mls/hr IV Q6H [facility] Last Infusion: 03/19/20 01:11 Dose: Infused Documented by: Ibuprofen (Motrin) 600 mg PO Q6H PRN PRN PRN Reason: Pain Score 1-3/10 Methylergonovine Maleate (Methergine) 0.2 mg IM X1 PRN PRN Reason: Uterine Atony Naloxone HCl (Narcan) 0.02 mg IV Q1M PRN PRN Reason: RR <10 and pt unresponsive Ondansetron HCl (Zofran) 4 mg IV Q4H PRN PRN PRN Reason: Nausea Last Admin: 03/18/20 20:36 Dose: 4 mg Documented by: Oxycodone HCl (Oxyir) 5 - 10 mg PO Q4H PRN PRN PRN Reason: Pain Score 4-10/10 Last Admin: 03/19/20 05:35 Dose: 10 mg Documented by: Pantoprazole Sodium (Protonix) 20 mg PO DAILY [facility] Last Admin: 03/18/20 08:03 Dose: 20 mg Documented by: Prochlorperazine Edisylate (Compazine Iv) 10 mg IV Q6H PRN PRN PRN Reason: NAUSEA Senna/Docusate Sodium (Senokot-S, Ariane-Colace) 0 tablet PO DAILY PRN PRN Reason: Constipation Last Admin: 03/18/20 10:10 Dose: 1 tablet Documented by: Simethicone (Mylicon) 80 mg PO HS PRN PRN Reason: Indigestion/stomach pain Last Admin: 05/28/20 16:09 Dose: 80 mg Documented by: Sodium Chloride () 5 - 15 ml IV PRN PRN PRN Reason: SALINE FLUSH Last Admin: 03/19/20 01:17 Dose: 10 ml Documented by: Sodium Chloride () 5 - 15 ml IV UD PRN PRN Reason: SALINE FLUSH Medical Necessity - Tobacco Use Smoking Status: Never smoker Assessment/Plan All Active Problems History of delivery (Acute) 27 weeks gestation of (Acute) Multiparous (Acute) Nausea & vomiting (Acute) 38 weeks gestation of (Acute) PVC's (premature ventricular contractions) (Acute) 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 She was started on ampicillin, gentamicin, clindamycin for presumed endometritis due to recurrent fevers. She has been afebrile. White blood cell count has normalized. Clinically she has been doing well without fundal tenderness. No other signs of infection. If she remains afebrile today through lunch okay for discharge home. Reviewed discharge instructions and follow-up.
--- NOTE | 2020-03-19 06:16 | DCINST_ITS ---
Discharge Diet: No Restrictions Discharge Activity: May not drive while taking narcotic pain medications., May Shower, May Take a Tub Bath May resume sexual activity in: 6 weeks Ice area for (Minutes): 15 Weight Bearing Status: Weight bearing as tolerated Lifting Restrictions: No lifting greater than 15 pounds Call your doctor if your incision/area has: Sudden Increased Bleeding, Increased Pain/ Swelling, Increased Redness, Foul Smelling Discharge, Swelling at the incision site Call your doctor if you observe: Fever of 101 or Higher, Inability to urinate, Inability to have a bowel movement, Using more than one pad per hour, Shortness of breath, Dizziness, Chest pain, Increased palpitations (irregular heartbeat), Calf discomfort, Uncontrolled pain Suture Line Care: Avoid Pulling/Pushing, Avoid Pinching/Bending Cleanse incision/area with: Soap & Water Additional Instructions: If you experience any of the following, contact your healthcare provider. * Bleeding that soaks a pad every hour for 2 hours * Fever 100.4 or higher * Unrelieved incision or abdominal pain * Swelling, redness, discharge or bleeding from your incision or episiotomy site * Your incision begins to separate * Problems urinating (including inability to urinate or burning while urinating). * Visual changes * Severe headache * Flu-like symptoms * Pain or redness in one of both of your breasts * Pain, warmth, tenderness or swelling in your legs, especially the calf area * Frequent nausea and vomiting * Symptoms of depression or anxiety If you experience any of the following, call 911 or go to the nearest Emergency Room. * Chest pain * Problems breathing * Seizure activity * Partial or complete paralysis of a body part, slurred speech, weakness or drooping of the face, or a sudden inability to walk or hold your balance Allergies/Adverse Reactions: Allergies No Known Allergies Allergy (Verified 03/16/20 10:17) Medications to take at Discharge Calcium Carbonate [Tums] 200 mg PO PRN PRN 12/29/19 Omeprazole Magnesium [Prilosec] 10 mg PO 03/16/20 Pnv No.95/Ferrous Fum/Folic AC [ Caplet] 1 ea PO 03/16/20 Docusate Sodium [Colace] 100 mg PO BID #60 cap 03/19/20 Ferrous Sulfate 325 mg PO DAILY #30 tab 03/19/20 Ibuprofen [Motrin] 800 mg PO TID #60 tab 03/19/20 Oxycodone HCl/Acetaminophen [Percocet 5/325] 1 tablet PO Q6H PRN PRN 7 Days #28 tablet 03/19/20 The following prescriptions were given: Docusate Sodium [Colace] 100 mg PO BID #60 cap Transmission Status: Pending to [id number] Ferrous Sulfate 325 mg PO DAILY #30 tab Transmission Status: Pending to [facility] Ibuprofen [Motrin] 800 mg PO TID #60 tab Transmission Status: Pending to [facility] Oxycodone HCl/Acetaminophen [Percocet 5/325] 1 tablet PO Q6H PRN PRN 7 Days #28 tablet PRN Reason: Pain Score 6-10/10 Transmission Status: Sent to [facility] Follow-Up: Call to make an appointment with your doctor for an incision check in 1-2 weeks. You will also need a 6 week post- follow up appointment. Test results from this visit will be discussed in further detail at your follow- up appointment, if applicable. Please Follow Up With: Berta Nayak DO When: 1 week (can be virtual visit) and 6 week visit Primary Care Physician: Duke Londono MD [Primary Care Provider] -
[2020-03-19 08:04] VITALS: BP 115/68; PULSE 78; RESP 14; TEMP 36.8
[2020-03-19] MEDS: Enoxaparin 40 MG/0.4 ML Syringe SC (10:38)
[2020-03-19] MEDS: Pantoprazole Sodium 20 MG Tablet PO (10:38)
[2020-03-19] MEDS: Ibuprofen 600 MG Tablet PO (10:38)
[2020-03-19 11:22] VITALS: BP 114/67; PULSE 99; RESP 14; TEMP 36.8
--- NOTE | 2020-03-29 12:18 | DS.PCM_ITS ---
Discharge Date and Diagnosis Date of Admission: 03/16/20 Date of Discharge: 04/19/20 Hospital Course and Treatment Operations: - - repeat section with [facility] Summary of Care Provided: The patient is a 24 year old F [] admitted for repeat section with [facility]. She had history of 2 prior sections. History of multicystic dysplastic kidney. She desired permanent sterilization discussion of risk, benefits, alternatives. See operative report for details of repeat section with [facility]PS. Postoperatively she had several fevers of unknown etiology. UA and urine culture were collected. She was otherwise doing well and asymptomatic. She was started on triple antibiotics for suspected endometritis. The antibiotics were continued for 48 hours and she remained afebrile. Her pain was controlled. She was tolerating regular diet. She was ambulating and voiding without difficulty on day of discharge. She was discharged home in good condition with follow-up in the office. - Physical Exam Vitals/I&O's: Vital Signs Temp Pulse Resp BP Pulse Ox 98.2 F 99 14 114/67 99 03/19/20 11:22 03/19/20 11:22 03/19/20 11:22 03/19/20 11:22 03/19/20 01:06 Oxygen Delivery Method Room Air Weight: 175 lb Body Mass Index (BMI) 30.9 Discharge Diet: No Restrictions Discharge Activity: May not drive while taking narcotic pain medications., May Shower, May Take a Tub Bath May resume sexual activity in: 6 weeks Ice area for (Minutes): 15 Weight Bearing Status: Weight bearing as tolerated Call your doctor if your incision/area has: Sudden Increased Bleeding, Increased Pain/ Swelling, Increased Redness, Foul Smelling Discharge, Swelling at the incision site Call your doctor if you observe: Fever of 101 or Higher, Inability to urinate, Inability to have a bowel movement, Using more than one pad per hour, Shortness of breath, Dizziness, Chest pain, Increased palpitations (irregular heartbeat), Calf discomfort, Uncontrolled pain Suture Line Care: Avoid Pulling/Pushing, Avoid Pinching/Bending Cleanse incision/area with: Soap & Water Home Medications: Medications to take at Discharge Calcium Carbonate [Tums] 200 mg PO PRN PRN 12/29/19 Omeprazole Magnesium [Prilosec] 10 mg PO 03/16/20 Pnv No.95/Ferrous Fum/Folic AC [ Caplet] 1 ea PO 03/16/20 Docusate Sodium [Colace] 100 mg PO BID #60 cap 03/19/20 Ferrous Sulfate 325 mg PO DAILY #30 tab 03/19/20 Ibuprofen [Motrin] 800 mg PO TID #60 tab 03/19/20 Following Prescrptions Were Given to Patient: Docusate Sodium [Colace] 100 mg PO BID #60 cap Transmission Status: Received by [id number] Ferrous Sulfate 325 mg PO DAILY #30 tab Transmission Status: Received by [facility] Ibuprofen [Motrin] 800 mg PO TID #60 tab Transmission Status: Received by [facility] Primary Care Physician: Duke Londono MD [Primary Care Provider] - Please Follow Up With: Berta Nayak DO When: 1 week (can be virtual visit) and 6 week visit Medical Necessity - Tobacco Use Smoking Status: Never smoker Meaningful Use Info Meaningful Use Diagnoses (Choose all that apply): None applicable
== END 2020-03-19 11:30 | disposition home or self-care (01) | DRG 785 ==
PROVIDERS: Advanced Practice Midwife; Admitting Provider Obstetrics & Gynecology; PCP Family Medicine; Visit Provider Obstetrics & Gynecology
PROC: 10D00Z1 Extraction of Products of Conception, Low, Open Approach (ICD-10-PCS; CPT 59514; principal; 2020-03-16 11:45)
DX: O34.211 Maternal care for low transverse scar from previous cesarean delivery (principal); Z3A.38 38 weeks gestation of pregnancy; Z37.0 Single live birth; E04.2 Nontoxic multinodular goiter; O99.284 Endocrine, nutritional and metabolic diseases complicating childbirth; O36.63X0 Maternal care for excessive fetal growth, third trimester, not applicable or unspecified; Z30.2 Encounter for sterilization; O69.82X0 Labor and delivery complicated by other cord entanglement, without compression, not applicable or unspecified
CPT/HCPCS: 81001; 85025; 85027; 86850; 86900; 86901; 87086; 87635; 88302; 99218; G2023; J7120; A4216; G0378; J2405; U0004